=== PATIENT | male | born 1985 | race Caucasian/White ===

== ENCOUNTER → 2018-02-09 09:57 | Outpatient (CLI) | payer OTHER, SELFPAY ==
[2018-02-09 11:50] LABS: Liquefaction Semen YES (YES); Sperm Count 165 x10^6/mL (20-150); Volume Semen 3.5 (1.0-5.0)
[2018-02-09 11:51] LABS: Sperm Morphology 55 %ABNORM (0-30); Sperm Motility 10% % Motile
== END ==
PROVIDERS: Visit Provider Registered Nurse
DX: Z01.89 Encounter for other specified special examinations (principal)
CPT/HCPCS: 89320